=== PATIENT | female | born 1945 | race Caucasian/White ===

== ENCOUNTER 2021-02-20 07:43 | Observation (INO) | payer MEDICARE ==
[2021-02-13 15:54] LABS: BASOPHILS % (AUTO) 0.9 % (0.0-5.0); EOSINOPHILS % (AUTO) 5.3 % (0.0-8.0); LYMPHOCYTES % (AUTO) 25.9 % (21.0-51.0); MEAN CORPUSCULAR HEMOGLOBIN 22.1 pg (27.0-33.0); MEAN CORPUSCULAR HGB CONC 29.1 g/dL (32.0-36.0); MEAN CORPUSCULAR VOLUME 75.9 fL (79-99); MONOCYTES % (AUTO) 7.9 % (3.0-13.0); NEUTROPHILS % (AUTO) 59.7 % (40.0-77.0); PLATELET COUNT (AUTO) 340 K/uL (130-400); RED BLOOD CELL COUNT(AUTO) 4.35 MIL/uL (4.00-5.50); RED CELL DISTRIBUTION WIDTH 16.2 % (11.0-15.5)
[2021-02-13 16:05] LABS: CREATININE 0.7 mg/dL (0.5-1.5); POTASSIUM 4.6 mmol/L (3.5-5.1)
[2021-02-13 16:07] LABS: INR 0.95 (0.85-1.15); PROTHROMBIN TIME 10.4 SEC (9.6-11.6)
[2021-02-13 16:08] LABS: PARTIAL THROMBOPLASTIN TIME 27.6 SEC (26.3-35.5)
[2021-02-19 11:00] VITALS: BP 141/82
[~2021-02-20] VITALS: Ht 162.6 cm; Wt 82.9 kg
[2021-02-20] VITALS (27 sets, daily range): BP systolic 43–167; BP diastolic 51–97
[~2021-02-20 07:43] MED LIST: ACET-2893 PO; ASPI-1443 PO; CART1TAB5 PO; GABA300C PO; LORA10TA7 PO; MELO-108 PO; METO25TA3 PO; MIRA25TA PO; OMEP20TA25 PO; PRAV20TA4 PO
[2021-02-20] MEDS ORDERED: TRANEXAMIC ACID 3,000 MG in 0.9% NACL 250ML 250 ML IV ONE (08:00)
[2021-02-20] MEDS ORDERED: LACTATED RINGERS 1000ML 1,000 ML IV SCH (08:00)
[2021-02-20] MEDS ORDERED: ROPIVICAINE 250MG+KETOROLAC 15MG+EPINEPHRINE 0.3+CLONIDINE 80 IV SCH ×5 (08:00)
[2021-02-20] MEDS: CEFAZOLIN SODIUM 1 GM VIAL IVP ONE ×2 (09:07→11:28)
[2021-02-20] MEDS ORDERED: LIDOCAINE PF 100MG/5ML (2%) SYRINGE 5ML ONE (09:30)
[2021-02-20] MEDS ORDERED: PROPOFOL 10 MG/ML 20ML VIAL IV ONE (09:31)
[2021-02-20] MEDS ORDERED: ONDANSETRON 4MG INJ ONE (09:31)
[2021-02-20] MEDS ORDERED: SUCCINYLCHOLINE CHLORIDE 20 MG/ML 10 ML VIAL ONE (09:31)
[2021-02-20] MEDS ORDERED: GLYCOPYRROLATE 1 MG/5 ML SYRINGE ONE (09:31)
[2021-02-20] MEDS ORDERED: DEXAMETHASONE SOD PHOSPHATE 10MG/ML 1ML VIAL ONE (09:31)
[2021-02-20] MEDS ORDERED: NEOSTIGMINE 5MG/5ML SYR IV ONE (09:31)
[2021-02-20] MEDS ORDERED: ROCURONIUM 10MG/1ML SYR 10 MG/ML ML ONE (09:32)
[2021-02-20] MEDS ORDERED: MIDAZOLAM HCL 1 MG/ML 2ML VIAL ONE ×2 (09:32→11:32)
[2021-02-20] MEDS ORDERED: FENTANYL CITRATE PF 50 MCG/1 ML 2ML VIAL ONE (09:32)
[2021-02-20] MEDS ORDERED: TRANEXAMIC ACID 1000MG/10ML ONE (10:36)
[2021-02-20] MEDS ORDERED: HYDROCODONE/ACETAMINOPHEN 5/325 MG TAB PO PRN (11:30)
[2021-02-20] MEDS: 0.9%NACL 1000ML 1,000 ML IV SCH ×2 (11:30→21:30)
[2021-02-20] MEDS: ACETAMINOPHEN 500 MG TABLET PO SCH ×2 (11:30→20:22)
[2021-02-20] MEDS: TRAMADOL HCL 50 MG TABLET PO SCH ×2 (12:00→17:39)
[2021-02-20] MEDS ORDERED: MEPERIDINE-PF 25 MG/ML SYG ONE (15:01)
[2021-02-20] MEDS: MORPHINE 4 MG SYG IVP PRN ×2 (16:52→22:34)
[2021-02-20] MEDS: CEFAZOLIN SODIUM 1 GM VIAL IVP SCH (16:53)
[2021-02-20] MEDS: OXYCODONE HCL 5 MG TAB PO PRN (20:20)
[2021-02-20] MEDS: CELECOXIB 200 MG CAP PO SCH (20:21)
[2021-02-20] MEDS: ASPIRIN 81 MG EC TAB PO SCH (20:22)
[2021-02-20] MEDS: GABAPENTIN 300 MG CAPSULE PO SCH (20:22)
[2021-02-21] MEDS: CEFAZOLIN SODIUM 1 GM VIAL IVP SCH (00:15)
[2021-02-21] MEDS: TRAMADOL HCL 50 MG TABLET PO SCH ×5 (00:15→18:26)
[2021-02-21 04:01] VITALS: BP 121/54
[2021-02-21] MEDS: ACETAMINOPHEN 500 MG TABLET PO SCH ×3 (04:01→21:42)
[2021-02-21] MEDS: MORPHINE 4 MG SYG IVP PRN ×3 (04:01→18:45)
[2021-02-21 04:16] LABS: HEMATOCRIT 27.8 % (36-48); MEAN CORPUSCULAR HEMOGLOBIN 22.2 pg (27.0-33.0); MEAN CORPUSCULAR HGB CONC 29.5 g/dL (32.0-36.0); MEAN CORPUSCULAR VOLUME 75.1 fL (79-99); PLATELET COUNT (AUTO) 290 K/uL (130-400); RED CELL DISTRIBUTION WIDTH 16.1 % (11.0-15.5); WHITE BLOOD COUNT (AUTO) 8.7 K/uL (4.8-10.8)
[2021-02-21 04:51] LABS: CREATININE 0.8 mg/dL (0.5-1.5); POTASSIUM 4.3 mmol/L (3.5-5.1)
[2021-02-21] MEDS: OXYCODONE HCL 5 MG TAB PO PRN ×3 (04:54→14:48)
[2021-02-21 07:30] VITALS: BP 109/48
[2021-02-21] MEDS: 0.9%NACL 1000ML 1,000 ML IV SCH (07:30)
[2021-02-21] MEDS: ONDANSETRON 4MG INJ IVP PRN ×2 (08:05→18:44)
[2021-02-21] MEDS: CELECOXIB 200 MG CAP PO SCH ×2 (08:06→21:38)
[2021-02-21] MEDS: ASPIRIN 81 MG EC TAB PO SCH ×2 (08:06→21:39)
[2021-02-21] MEDS: POLYETHYLENE GLYCOL 3350 17 GM POWD.PACK PO SCH (08:06)
[2021-02-21] MEDS: LORATADINE 10 MG TABLET PO SCH (08:06)
[2021-02-21] MEDS: PANTOPRAZOLE 40 MG TAB DR PO SCH (08:06)
[2021-02-21] MEDS: METOPROLOL SUCCINATE 50 MG TAB.SR.24H PO SCH (08:07)
[2021-02-21] MEDS: (Mirabegron (Myrbetriq) 25 MG) PO SCH (09:00)
[2021-02-21] MEDS ORDERED: NON-FORMULARY MEDICATION 1 EACH (Metoprolol Succinate (Toprol Xl) 25 MG) PO SCH (09:00)
[2021-02-21] MEDS ORDERED: NON-FORMULARY MEDICATION 1 EACH (Omeprazole 20 MG) PO SCH (09:00)
[2021-02-21 11:00] VITALS: BP 134/64
[2021-02-21 16:00] VITALS: BP 116/76
[2021-02-21 19:54] VITALS: BP 130/63
[2021-02-21] MEDS: GABAPENTIN 300 MG CAPSULE PO SCH (21:39)
[2021-02-21 23:01] VITALS: BP 135/56
[2021-02-22] MEDS: TRAMADOL HCL 50 MG TABLET PO SCH ×4 (00:47→17:50)
[2021-02-22 03:48] VITALS: BP 131/61
[2021-02-22] MEDS: ACETAMINOPHEN 500 MG TABLET PO SCH ×2 (05:55→13:07)
[2021-02-22 07:30] VITALS: BP 113/49
[2021-02-22] MEDS: PANTOPRAZOLE 40 MG TAB DR PO SCH (08:21)
[2021-02-22] MEDS: ASPIRIN 81 MG EC TAB PO SCH (08:21)
[2021-02-22] MEDS: CELECOXIB 200 MG CAP PO SCH (08:21)
[2021-02-22] MEDS: POLYETHYLENE GLYCOL 3350 17 GM POWD.PACK PO SCH (08:22)
[2021-02-22] MEDS: LORATADINE 10 MG TABLET PO SCH (08:22)
[2021-02-22] MEDS: METOPROLOL SUCCINATE 50 MG TAB.SR.24H PO SCH (09:00)
[2021-02-22] MEDS: (Mirabegron (Myrbetriq) 25 MG) PO SCH (09:00)
[2021-02-22 11:00] VITALS: BP 111/54
[2021-02-22] MEDS: OXYCODONE HCL 5 MG TAB PO PRN (13:06)
[2021-02-22 15:30] VITALS: BP 110/56
[2021-02-23] MEDS ORDERED: BISACODYL 10 MG SUPP.RECT RC PRN (11:30)
== END 2021-02-22 18:10 | disposition home health service (06) ==
LOC: DAH 07:43 → DAHIP 07:44 → 4AH 13:56
PROVIDERS: ADMIT Orthopaedic Surgery; ATTEND Orthopaedic Surgery
DX: M17.11 Unilateral primary osteoarthritis, right knee (principal); Z20.822 Contact with and (suspected) exposure to COVID-19; K59.00 Constipation, unspecified; Z79.82 Long term (current) use of aspirin; Z79.899 Other long term (current) drug therapy; Z98.890 Other specified postprocedural states
CPT/HCPCS: 27447; 36415 ×2; 80048 ×2; 85025; 85027; 85610; 85730; 87635; 87641; 93005; 96374; 96375 ×2; 96376 ×2; 97039 ×4; 97116 ×4; 97161; 97530 ×2; A4215; A4221; A4222; A4223; A4649 ×6; A4663; A4930; A6260; C1776; C9803; G0378 ×52; J0171; J0330; J0690 ×3; J0735; J1100; J1885; J2001; J2175; J2250 ×2; J2270 ×5; J2405 ×4; J2704; J2710; J2795; J3010; J3490 ×2; J7120 ×2; J7050

== ENCOUNTER → 2021-05-28 | Outpatient (CLI) | payer MEDICARE ==
[~2021-05-28] MED LIST changes: +ESZO2 PO
== END | disposition home or self-care (01) ==
LOC: RAH 12:16
PROVIDERS: ATTEND Orthopaedic Surgery
DX: M17.12 Unilateral primary osteoarthritis, left knee (principal); M25.462 Effusion, left knee; M25.762 Osteophyte, left knee
CPT/HCPCS: 73700

== ENCOUNTER 2021-05-29 07:17 | Observation (INO) | payer MEDICARE ==
[2021-05-28 07:47] VITALS: BP 193/88
[2021-05-28 14:29] LABS: BASOPHILS % (AUTO) 0.9 % (0.0-5.0); HEMATOCRIT 33.7 % (36-48); LYMPHOCYTES % (AUTO) 29.8 % (21.0-51.0); MEAN CORPUSCULAR HEMOGLOBIN 20.4 pg (27.0-33.0); MEAN CORPUSCULAR HGB CONC 28.5 g/dL (32.0-36.0); MEAN CORPUSCULAR VOLUME 71.5 fL (79-99); MONOCYTES % (AUTO) 9.9 % (3.0-13.0); NEUTROPHILS % (AUTO) 54.1 % (40.0-77.0); PLATELET COUNT (AUTO) 363 K/uL (130-400); RED BLOOD CELL COUNT(AUTO) 4.71 MIL/uL (4.00-5.50); RED CELL DISTRIBUTION WIDTH 16.9 % (11.0-15.5); WHITE BLOOD COUNT (AUTO) 7.4 K/uL (4.8-10.8)
[2021-05-28 14:37] LABS: CREATININE 0.7 mg/dL (0.5-1.5)
[2021-05-28 14:42] LABS: INR 0.97 (0.85-1.15); PROTHROMBIN TIME 10.6 SEC (9.6-11.6)
[2021-05-28 14:43] LABS: PARTIAL THROMBOPLASTIN TIME 27.4 SEC (26.3-35.5)
[~2021-05-29] VITALS: Ht 162.6 cm; Wt 84.9 kg
[2021-05-29] VITALS (26 sets, daily range): BP systolic 116–193; BP diastolic 53–88
[~2021-05-29 07:17] MED LIST changes: -ESZO2 PO; -MELO-108 PO
[2021-05-29] MEDS ORDERED: LACTATED RINGERS 1000ML 1,000 ML IV SCH (08:00)
[2021-05-29] MEDS: CEFAZOLIN SODIUM 1 GM VIAL IVP ONE ×2 (08:25→15:17)
[2021-05-29] MEDS: PANTOPRAZOLE 40 MG TAB DR PO SCH (08:29)
[2021-05-29] MEDS ORDERED: ESZO2 PO (08:30)
[2021-05-29] MEDS: ACETAMINOPHEN 500 MG TABLET PO SCH ×2 (08:30→16:30)
[2021-05-29] MEDS ORDERED: ONDANSETRON 4MG INJ IVP PRN (08:30)
[2021-05-29] MEDS ORDERED: MELO-108 PO (08:30)
[2021-05-29] MEDS ORDERED: HYDROCODONE/ACETAMINOPHEN 5/325 MG TAB PO PRN (08:30)
[2021-05-29] MEDS: MIRABEGRON 25 MG PO SCH (09:00)
[2021-05-29] MEDS: LORATADINE 10 MG TABLET PO SCH (09:00)
[2021-05-29] MEDS: ASPIRIN 81 MG EC TAB PO SCH ×2 (09:00→20:06)
[2021-05-29] MEDS: POLYETHYLENE GLYCOL 3350 17 GM POWD.PACK PO SCH (09:00)
[2021-05-29] MEDS: FAMOTIDINE 20MG TAB PO SCH ×2 (09:00→20:06)
[2021-05-29] MEDS: METOPROLOL SUCCINATE 50 MG TAB.SR.24H PO SCH (09:00)
[2021-05-29] MEDS: TRAMADOL HCL 50 MG TABLET PO SCH ×3 (12:00→23:59)
[2021-05-29] MEDS: CEFAZOLIN SODIUM 1 GM VIAL IVP SCH ×2 (13:30→20:18)
[2021-05-29] MEDS ORDERED: TRANEXAMIC ACID 1000MG/10ML ONE (14:14)
[2021-05-29] MEDS ORDERED: MIDAZOLAM HCL 1 MG/ML 2ML VIAL ONE ×2 (14:34→14:38)
[2021-05-29] MEDS ORDERED: DEXAMETHASONE SOD PHOSPHATE 10MG/ML 1ML VIAL ONE (14:51)
[2021-05-29] MEDS ORDERED: PROPOFOL 10 MG/ML 20ML VIAL IV ONE (15:16)
[2021-05-29] MEDS ORDERED: EPHEDRINE SULFATE 50 MG/ML AMPULE ONE (15:47)
[2021-05-29] MEDS ORDERED: GLYCOPYRROLATE 1 MG/5 ML SYRINGE ONE (17:59)
[2021-05-29] MEDS ORDERED: MEPERIDINE-PF 25 MG/ML SYG ONE (18:37)
[2021-05-29] MEDS: GABAPENTIN 300 MG CAPSULE PO SCH (20:06)
[2021-05-29] MEDS: MORPHINE 4 MG SYG IVP PRN (20:07)
[2021-05-29] MEDS: 0.9%NACL 1000ML 1,000 ML IV SCH (20:18)
[2021-05-30 04:18] VITALS: BP 125/65
[2021-05-30] MEDS: 0.9%NACL 1000ML 1,000 ML IV SCH (04:30)
[2021-05-30 05:16] LABS: HEMATOCRIT 28.7 % (36-48); MEAN CORPUSCULAR HEMOGLOBIN 21.1 pg (27.0-33.0); MEAN CORPUSCULAR HGB CONC 28.9 g/dL (32.0-36.0); RED BLOOD CELL COUNT(AUTO) 3.93 MIL/uL (4.00-5.50); RED CELL DISTRIBUTION WIDTH 16.8 % (11.0-15.5); WHITE BLOOD COUNT (AUTO) 13.2 K/uL (4.8-10.8)
[2021-05-30 05:24] LABS: CREATININE 0.7 mg/dL (0.5-1.5); POTASSIUM 4.1 mmol/L (3.5-5.1)
[2021-05-30] MEDS: TRAMADOL HCL 50 MG TABLET PO SCH ×3 (05:38→19:09)
[2021-05-30] MEDS: PANTOPRAZOLE 40 MG TAB DR PO SCH (05:43)
[2021-05-30 08:20] VITALS: BP 126/47
[2021-05-30] MEDS: POLYETHYLENE GLYCOL 3350 17 GM POWD.PACK PO SCH (08:23)
[2021-05-30] MEDS: ASPIRIN 81 MG EC TAB PO SCH ×2 (08:24→21:39)
[2021-05-30] MEDS: METOPROLOL SUCCINATE 50 MG TAB.SR.24H PO SCH (08:25)
[2021-05-30] MEDS: FAMOTIDINE 20MG TAB PO SCH ×2 (08:26→21:38)
[2021-05-30] MEDS: ACETAMINOPHEN 500 MG TABLET PO SCH ×3 (08:26→17:07)
[2021-05-30] MEDS: LORATADINE 10 MG TABLET PO SCH (08:26)
[2021-05-30] MEDS: MIRABEGRON 25 MG PO SCH (08:27)
[2021-05-30] MEDS: MORPHINE 4 MG SYG IVP PRN ×2 (08:29→21:46)
[2021-05-30 11:55] VITALS: BP 132/70
[2021-05-30 16:16] VITALS: BP 117/43
[2021-05-30 20:00] VITALS: BP 116/42
[2021-05-30] MEDS: GABAPENTIN 300 MG CAPSULE PO SCH (21:38)
[2021-05-31] VITALS: BP 125/53
[2021-05-31] MEDS: ACETAMINOPHEN 500 MG TABLET PO SCH ×3 (00:43→16:30)
[2021-05-31] MEDS: TRAMADOL HCL 50 MG TABLET PO SCH ×3 (00:43→12:53)
[2021-05-31 04:00] VITALS: BP 119/47
[2021-05-31] MEDS: MORPHINE 4 MG SYG IVP PRN (05:05)
[2021-05-31] MEDS: PANTOPRAZOLE 40 MG TAB DR PO SCH (06:25)
[2021-05-31 08:35] VITALS: BP 128/45
[2021-05-31] MEDS: MIRABEGRON 25 MG PO SCH (09:00)
[2021-05-31] MEDS: METOPROLOL SUCCINATE 50 MG TAB.SR.24H PO SCH (09:00)
[2021-05-31] MEDS: POLYETHYLENE GLYCOL 3350 17 GM POWD.PACK PO SCH (09:19)
[2021-05-31] MEDS: FAMOTIDINE 20MG TAB PO SCH (09:21)
[2021-05-31] MEDS: ASPIRIN 81 MG EC TAB PO SCH (09:21)
[2021-05-31] MEDS: LORATADINE 10 MG TABLET PO SCH (09:21)
[2021-05-31] MEDS: HYDROCODONE/ACETAMINOPHEN 10/325 MG TAB PO PRN ×2 (09:25→14:56)
[2021-05-31 12:07] VITALS: BP 111/46
[2021-05-31 16:38] VITALS: BP 132/47
[2021-06-01] MEDS ORDERED: BISACODYL 10 MG SUPP.RECT RC PRN (08:30)
== END 2021-05-31 17:10 | disposition home or self-care (01) ==
LOC: DAH 07:17 → DAHIP 07:18 → DAH 07:18 → 3BH 19:34
PROVIDERS: ADMIT Orthopaedic Surgery; ATTEND Orthopaedic Surgery
DX: M17.12 Unilateral primary osteoarthritis, left knee (principal); Z20.822 Contact with and (suspected) exposure to COVID-19; G89.29 Other chronic pain; M25.562 Pain in left knee; Z68.31 Body mass index [BMI] 31.0-31.9, adult
CPT/HCPCS: 27447; 36415 ×2; 64447; 64450; 73560; 76942; 80048 ×2; 85025; 85027; 85610; 85730; 87635; 87641; 93005; 96374; 96375; 96376 ×2; 97039 ×4; 97116 ×4; 97161; 97530 ×4; A4215; A4216; A4221; A4222; A4223; A4600; A4649 ×5; A4663; A6223; A6260; C1776; C9803; G0378 ×50; J0690 ×2; J1100; J2175; J2250 ×2; J2270 ×4; J2405; J2704; J3490 ×3; J7030 ×2; J7120